=== PATIENT | male | born 1980 | race Caucasian/White ===

== ENCOUNTER 2016-08-15 22:23 | Emergency (ER) | payer OTHER ==
--- NOTE | 2016-08-15 22:56 | ED Physician Documentation ---
General Adult - HISTORIAN Historian: patient - HPI Stated Complaint: chest pain Chief Complaint: General Adult Additional Information: Became sweaty and uncomfortable when he sat down to dinner. Hands and arms tingling and he felt hot. Went outside and mother followed, brought him to ER. Symptoms resolved at time of exam. Had some discomfort on the right ant chest noted after mother asked him about it. This began right back and came through to the front. - ROS CONST: no problems - PAST HX Past History: hypertension, other (panic attack, anxiety, DM (no meds). ) Allergies/Adverse Reactions: Allergies Allergy/AdvReac Type Severity Reaction Status Date / Time bee venom (honey bee) Allergy Severe Anaphylaxis Verified 08/15/16 22:47 Home Medications: Ambulatory Orders Medication Instructions Recorded Epinephrine [Epipen 2-Fede] 0.3 mg IJ PRN PRN #1 unit 12/17/14 Lisinopril [Prinivil] 1 tab PO D 12/17/14 Citalopram Hydrobromide 1 tab PO D 08/15/16 [Citalopram HBr] - SOCIAL HX Smoking History: quit greater than 1 year, cigarettes, greater than 1 pack/day Alcohol Use: heavy (in the past) Drug Use: none - FAMILY HX Family History: Yes (F with stroke before age 60) - VITAL SIGNS Vital Signs: Vital Signs Temp Pulse Resp BP Pulse Ox 97.7 F 88 20 109/70 95 08/15/16 22:35 08/15/16 22:35 08/15/16 22:35 08/15/16 22:35 08/15/16 22:35 - REVIEWED ASSESSMENTS Nursing Assessment Reviewed: Yes Vitals Reviewed: Yes Progress - Progress Progress: Chest 2 views Date of Exam: August 15, 2016. History: CHEST PAIN THAT STARTED APPROX 2200 (Hx) Findings: The cardiac and mediastinal silhouettes are normal. The lungs are clear. There is no evidence of pulmonary infiltrate or pleural effusion. The trachea is midline and the aortic arch contour is normal. The pulmonary vascularity is within normal limits. There is gaseous distention of the colon in the left upper abdomen. Impression: No acute cardiopulmonary abnormality. Electronically signed on Aug 15, 2016 11:25:27 PM CDT by: Rich Estrada EKG: sinus rhythm, no acute ischemia ED Results Lab/Radiology - Orders Orders: ED Orders Category Date Time Status Continuous EKG monitoring Q1H Care 08/15/16 22:53 Ordered Continuous Pulse Oximetry Q1H Care 08/15/16 22:[address] Saline Lock/IV Now Care 08/15/16 22:55 Ordered CHEST P.A.&LAT 2 VIEWS [RAD] Stat Exams 08/15/16 Ordered CBC/PLATELET/DIFF Routine Lab 08/15/16 Ordered CMP Routine Lab 08/15/16 Ordered TROPONIN I (cTnI) Stat Lab 08/15/16 Ordered URINALYSIS Routine Lab 08/15/16 Ordered Oxygen Daily Oxygen 08/15/16 23:00 Ordered EKG WITH COMPARISON Stat Ther 08/15/16 Ordered General Adult Physical Exam - PHYSICAL EXAM GENERAL APPEARANCE: obese EENT: eye inspection normal, ENT inspection normal, pharynx normal (Mallampati 2 ) NECK: normal inspection, supple RESPIRATORY: no resp distress, chest non-tender, breath sounds normal CVS: reg rate & rhythm, heart sounds normal, no murmur ABDOMEN: soft, normal bowel sounds RECTAL: deferred BACK: normal inspection, no CVA tenderness SKIN: warm/dry, normal color EXTREMITIES: no evidence of injury, no edema NEURO: CN's nml as tested, motor nml, sensation nml Discharge Clincal Impression: Anxiety hyperventilation, Chest wall pain Additional Instructions: Follow up with Dr. Arthur as needed. Home Medications: Ambulatory Orders Epinephrine [Epipen 2-Fede] 0.3 mg IJ PRN PRN #1 unit 12/17/14 Lisinopril [Prinivil] 1 tab PO D 12/17/14 Citalopram Hydrobromide [Citalopram HBr] 1 tab PO D 08/15/16 Condition: Good Disposition: 01 HOME, SELF-CARE Decision to Admit: NO Decision Time: 23:30
[2016-08-15 23:03] LABS: BASOPHILS % 0.3 (0.0-1.5); EOSINOPHILS % 0.5 % (0.0-6.8); MEAN CORPUSCULAR HEMOGLOBIN 30.2 pg (28.0-34.0); MEAN CORPUSCULAR VOLUME 85.9 fl (80.0-100.0); MONOCYTES % 5.1 % (0.0-11.0); NEUTROPHILS # 8.2 # k/uL (1.4-7.7)
[2016-08-15 23:15] LABS: eGFR (African) > 60; eGFR (Non-African) > 60
[2016-08-16 00:05] VITALS: BP 110/55
--- NOTE | 2016-08-16 06:07 | Diagnostic Imaging Report ---
Report Submission Date: Aug 15, 2016 11:25:27 PM CDT Patient ~ Study Name: JANE ARNETT) ~ Date: Aug 15, 2016 11:08:33 PM CDT ~ Modality Type: CR Gender: M ~ Description: CHEST : 84 ~ Institution: [facility] Physician: KAREN BELL ~ ~ ~ ~ Chest 2 views Date of Exam: August 15, 2016. History:~ CHEST PAIN THAT STARTED APPROX 2200 (Hx) Findings: The cardiac and mediastinal silhouettes are normal. The lungs are clear. There is no evidence of pulmonary infiltrate or pleural effusion. The trachea is midline and the aortic arch contour is normal. The pulmonary vascularity is within normal limits. There is gaseous distention of the colon in the left upper abdomen. Impression: No acute cardiopulmonary abnormality. ~ Electronically signed on Aug 15, 2016 11:25:27 PM CDT by: Rich WALLER
== END 2016-08-15 23:51 | disposition home or self-care (01) ==
LOC: ED 22:23
DX: F41.9 Anxiety disorder, unspecified (principal); R07.9 Chest pain, unspecified
CPT/HCPCS: 71020; 80053; 84484; 85025; 99283; S1016